=== PATIENT | female | born 1955 | race Caucasian/White ===

== ENCOUNTER → 2019-11-10 | Outpatient (CLI) | payer OTHER, MEDICARE ==
[~2019-11-10] MED LIST: ASPI81CH; ESTR2; FISH OIL + D31 EACH; INSULANPEN; METF500C; SIMV10; TRAZ50
== END ==
LOC: LAB 07:04 → LAB SHORT 07:04
PROVIDERS: Nurse Practitioner Family
DX: Z01.419 Encounter for gynecological examination (general) (routine) without abnormal findings (principal)
CPT/HCPCS: G0145

== ENCOUNTER 2023-03-26 07:15 | Day surgery (SDC) | payer MEDICARE, OTHER ==
[~2023-03-26] VITALS: Ht 172.7 cm; Wt 67.2 kg
[2023-03-26] VITALS (18 sets, daily range): BP systolic 87–135; BP diastolic 57–80
[~2023-03-26 07:15] MED LIST changes: +LYUMJEV KW100 UNIT/1 SC; +METF500 PO; +NOVOLOG100 UNIT/3 SQ; +ROSU5 PO; +SERT100 PO; +TRESIBA100 UNIT/2 SC
--- NOTE | 2023-03-26 07:50 | NUR ---
History, Chart, Medications and Allergies reviewed before start of procedure. Patient up to Ambulate independently. Gait steady. Pre-Op teaching done. Pt verbalizes understanding. Patient confirms NPO status and agrees with scheduled surgery. Patient states colon prep results light yellow, translucent with minimal sediment. Lungs clear T/O to Auscultation. Patient States Post-Procedure ride home has been arranged.
--- NOTE | 2023-03-26 08:05 | NUR ---
03/26/23 0805 Gavin Jeffers HISTORY, CHART, MEDICATIONS AND ALLERGIES REVIEWED BEFORE START OF PROCEDURE. PATIENT CONFIRMS NPO STATUS AND AGREES WITH SCHEDULED PROCEDURE. 3-LEAD EKG REVIEWED WITH PHYSICIAN PRIOR TO START OF PROCEDURE. MONITOR INTACT WITH CONTINUOUS PULSE OXIMETRY,CAPNOGRAPHY, 3-LEAD EKG, INTERMITTENT BP. SUPPLEMENTAL O2 TO BE TITRATED THROUGHOUT PROCEDURE TO MAINTAIN O2 SATURATION ABOVE 90%. PATIENT DETERMINED TO BE ASA APPROPRIATE FOR PROPOFOL SEDATION PRIOR TO START OF PROCEDURE BY DR. CALERO.
--- NOTE | 2023-03-26 09:02 | NUR ---
DISCHARGE NOTE PT A&OX4, BREATHING RA, NO COMPLAINTS. PT TOLERATING PO FLUIDS. DC INSTRUCTIONS COVERED C PT AND HUSB, ALL QUESTIONS ANSWERED. PT DRESSED INDEPENDENTLY C RN AT BEDSIDE. ABDOMEN REMAINS SOFT AND NON-TENDER. Discharged via wheelchair to private car for ride home.
== END 2023-03-26 09:06 | disposition home or self-care (01) ==
LOC: ORSCMMR 07:15 → ORD 08:00 → ORSCMMR 08:00
PROVIDERS: Internal Medicine Gastroenterology
PROC: 0DBN8ZX Excision of Sigmoid Colon, Via Natural or Artificial Opening Endoscopic, Diagnostic (ICD-10-PCS; principal; 2023-03-26 08:00)
DX: Z12.11 Encounter for screening for malignant neoplasm of colon (principal); K63.5 Polyp of colon; Z86.010 Personal history of colon polyps; E11.9 Type 2 diabetes mellitus without complications; F32.A Depression, unspecified; E78.00 Pure hypercholesterolemia, unspecified; Z79.4 Long term (current) use of insulin; Z79.899 Other long term (current) drug therapy
CPT/HCPCS: 82947; 88305; J2704; J7120

== ENCOUNTER 2024-04-03 20:11 | Observation (INO) | payer MEDICARE, OTHER ==
[~2024-04-03] VITALS: Ht 172.7 cm; Wt 70.5 kg
[~2024-04-03 20:11] MED LIST changes: -ESTR2; +ESTR2 VAG
[2024-04-03 21:30] LABS: BASOPHILS ABSOLUTE AUTO 0.03 K/mm3 (0.00-0.23); BASOPHILS PERCENT AUTO 0 % (0-2); EOSINOPHILS PERCENT AUTO 1 % (0-6); Hematocrit 44.7 % (33.0-51.0); Hemoglobin 15.7 g/dL (11.5-16.0); IMMATURE GRAN ABSOLUTE AUTO 0.01 K/mm3 (0.00-0.10); IMMATURE GRAN PERCENT AUTO 0 % (0-1); LYMPHOCYTES ABSOLUTE AUTO 1.09 K/mm3 (0.84-5.20); LYMPHOCYTES PERCENT AUTO 14 % (21-46); MONOCYTES ABSOLUTE AUTO 0.75 K/mm3 (0.16-1.47); MONOCYTES PERCENT AUTO 9 % (4-13); Mean Corpuscular HGB 30.2 pg (26.0-34.0); Mean Corpuscular HGB Conc 35.1 g/dL (31.5-36.5); Mean Corpuscular Volume 86 fL (80-100); Mean Platelet Volume 9.7 fL (9.1-12.4); NEUTROPHILS PERCENT AUTO 75 % (41-73); Platelet Count 224 K/mm3 (150-400); RDW Coefficient Variation 12.8 % (11.7-14.2); RDW Standard Deviation 40.2 fL (35.1-46.3); White Blood Cell Count 7.98 K/mm3 (4.00-11.30)
[2024-04-03 21:49] LABS: Albumin, Blood 4.1 g/dL (3.4-5.0); Albumin/Globulin Ratio 1.2 (0.8-1.8); Bilirubin, Total 0.2 mg/dL (0.1-1.0); Bun/Creatinine Ratio 24.1 (12.0-20.0); Calcium, Blood 10.4 mg/dL (8.5-10.1); Creatinine, Blood 0.87 mg/dL (0.40-1.00); Globulin, Blood 3.4 g/dL (2.2-4.0); Potassium, Blood 4.1 mmol/L (3.5-5.5); Total Protein, Blood 7.5 g/dL (6.4-8.2)
[2024-04-04] MEDS ORDERED: NS 1,000 ML IV SCH (00:20)
[2024-04-04] MEDS ORDERED: NS 1,000 ML IV ONE (00:23)
[2024-04-04] MEDS ORDERED: FLU VACC TS2024-25(6MOS UP)/PF 45 MCG/0.5 ML SYRINGE IM SCH (01:35)
[2024-04-04] MEDS ORDERED: Ondansetron HCl 2 MG / ML 2ML Vial IV PRN (01:40)
[2024-04-04] MEDS ORDERED: Lactated Ringer's 1,000 ML IV SCH (02:00)
[2024-04-04 04:53] LABS: BASOPHILS ABSOLUTE AUTO 0.03 K/mm3 (0.00-0.23); BASOPHILS PERCENT AUTO 0 % (0-2); EOSINOPHILS ABSOLUTE AUTO 0.12 K/mm3 (0.00-0.68); EOSINOPHILS PERCENT AUTO 2 % (0-6); Hematocrit 39.4 % (33.0-51.0); Hemoglobin 13.4 g/dL (11.5-16.0); IMMATURE GRAN ABSOLUTE AUTO 0.02 K/mm3 (0.00-0.10); IMMATURE GRAN PERCENT AUTO 0 % (0-1); LYMPHOCYTES ABSOLUTE AUTO 1.98 K/mm3 (0.84-5.20); LYMPHOCYTES PERCENT AUTO 28 % (21-46); MONOCYTES ABSOLUTE AUTO 0.63 K/mm3 (0.16-1.47); MONOCYTES PERCENT AUTO 9 % (4-13); Mean Corpuscular HGB 29.7 pg (26.0-34.0); Mean Corpuscular Volume 87 fL (80-100); Mean Platelet Volume 9.4 fL (9.1-12.4); NEUTROPHILS PERCENT AUTO 60 % (41-73); Platelet Count 187 K/mm3 (150-400); RDW Standard Deviation 41.5 fL (35.1-46.3); Red Blood Cell Count 4.51 M/mm3 (3.80-5.20); White Blood Cell Count 6.98 K/mm3 (4.00-11.30)
[2024-04-04 05:25] LABS: Magnesium, Blood 1.9 mg/dL (1.6-2.4)
[2024-04-04 05:26] LABS: Alanine Aminotransfer (ALT/SGP 31 U/L (12-78); Albumin, Blood 3.6 g/dL (3.4-5.0); Albumin/Globulin Ratio 1.2 (0.8-1.8); Alk Phos 70 U/L (50-136); Anion Gap 12 mmol/L (3-11); Aspartate Aminotrans (AST/SGOT 28 U/L (12-37); Bilirubin, Total 0.3 mg/dL (0.1-1.0); Blood Urea Nitrogen 18 mg/dL (8-24); Bun/Creatinine Ratio 30.8 (12.0-20.0); CHOL/HDL RATIO 2.1; CO2, Blood 22 mmol/L (21-32); Calcium, Blood 8.6 mg/dL (8.5-10.1); Chloride, Blood 110 mmol/L (98-108); Cholesterol 143 mg/dL (50-200); Creatinine, Blood 0.59 mg/dL (0.40-1.00); Globulin, Blood 2.9 g/dL (2.2-4.0); Glomerular Filtration Rate 98 (60-); Glucose, Blood 91 mg/dL (70-99); HDL Cholesterol 67 mg/dL (>39); LDL/HDL RATIO 0.9; Low Density Lipoprotein Chol 61 mg/dL (0-110); Potassium, Blood 3.6 mmol/L (3.5-5.5); Sodium, Blood 140 mmol/L (136-145); Total Protein, Blood 6.5 g/dL (6.4-8.2); Triglycerides 76 mg/dL (30-160); Very Low Density Lipoprot Chol 15 mg/dL (6-32)
[2024-04-04] MEDS ORDERED: Insulin Regular 100 UNIT/ML 10ML Vial SC SCH (06:00)
[2024-04-04] MEDS ORDERED: Enoxaparin 40 MG/0.4 ML SYR SC SCH (09:00)
[2024-04-04] MEDS ORDERED: Sertraline HCl 100 MG Tab PO SCH (09:00)
[2024-04-04] MEDS ORDERED: Aminophylline 250MG / 10ML 10 ML Vial ONE (13:40)
[2024-04-04] MEDS ORDERED: Regadenoson 0.4 MG/5 ML SYRINGE ONE (13:40)
[2024-04-04 15:55] VITALS: BP 125/71
--- NOTE | 2024-04-04 17:41 | NUR ---
SHIFT SUMMARY PT A&OX4, VSS, AMB IND, TOLERATING PO, VOIDING, AND DENIED PAIN. CALL LIGHT WITHIN REACH AND PT ABLE TO MAKE NEEDS KNOWN. PLAN FOR D/C ONCE RESULTS FROM CARDIAC WORKUP IS COMPLETE.
[2024-04-04] MEDS ORDERED: Crestor40 MG PO (19:38)
--- NOTE | 2024-04-04 20:30 | NUR ---
PT IS SITTING UP IN BED, SIGNIFICANT OTHER AT BEDSIDE. PT IS AWAITING DISCHARGE PAPERS. PT DENIES ANY COMPLAINTS AT THIS TIME. CALL LIGHT WITHIN REACH.
[2024-04-04] MEDS ORDERED: Misc. Tablet PO SCH (21:00)
--- NOTE | 2024-04-04 21:29 | NUR ---
Iv removed, tele removed. assisted pt to W/c and transfered into car without difficulty. Pt had her insulin supplies in hand.
== END 2024-04-04 20:24 | disposition home or self-care (01) ==
LOC: ER 20:11 → ERHOLD 20:12 → MEDS 04-04 15:46
PROVIDERS: Student in an Organized Health Care Education/Training Program; ADMIT Student in an Organized Health Care Education/Training Program
DX: R00.2 Palpitations (principal); R07.89 Other chest pain; E11.9 Type 2 diabetes mellitus without complications; E78.5 Hyperlipidemia, unspecified; Z88.5 Allergy status to narcotic agent; Z79.4 Long term (current) use of insulin; Z79.899 Other long term (current) drug therapy
CPT/HCPCS: 71046; 78452; 80053; 80061; 82947; 83690; 83735; 84443; 84484; 85025; 93005; 93010; 93017; 96361; 96372; 96374; 99285-25; A9270; A9500; G0378; J0280; J1650; J1815; J2785; J7030; J7120